=== PATIENT | male | born 1980 | race Two or more races ===

== ENCOUNTER 2024-09-29 12:39 | Inpatient (IN) | payer OTHER ==
[~2024-09-29] VITALS: Ht 177.8 cm; Wt 130.0 kg
[2024-09-29] MEDS ORDERED: MORPHINE SULFATE INJ 2 MG/ml SYRG IV PRN ×2 (13:00→16:00)
[2024-09-29] MEDS ORDERED: ACETAMINOPHEN 325 MG TAB PO PRN (13:00)
[2024-09-29] MEDS ORDERED: DOCUSATE SOD 100 MG CAP PO PRN (13:00)
[2024-09-29] MEDS ORDERED: ONDANSETRON HCL 4 MG/2 ML VIAL IV PRN (13:00)
[2024-09-29 14:01] LABS: Hematocrit 44.7 % (41.0-53.0); Hemoglobin 15.0 g/dL (13.5-17.5); Mean Corpuscular Hemoglobin 27.8 pg (28.0-32.0); Mean Corpuscular Volume 82.6 fL (80.0-100.0); Nucleated Red Blood Cells % 0.1 %
[2024-09-29 14:05] LABS: Chloride 106 mmol/L (98-107); Potassium 4.1 mmol/L (3.5-5.1); Sodium 141 mmol/L (136-145)
[2024-09-29 14:06] LABS: Anion Gap 10 (5-15); Carbon Dioxide 25 mmol/L (20-31)
[2024-09-29 14:07] LABS: Calcium 10.2 mg/dL (8.7-10.4)
[2024-09-29 14:11] LABS: BUN/Creatinine Ratio 12.2 (10.0-20.0); Blood Urea Nitrogen 15 mg/dL (9-23); Glucose 83 mg/dL (74-106); INR 1.03 (0.9-1.15); Partial Thromboplastin Time 27.5 SEC (24.5-34.5); Prothrombin Time 10.9 sec (9.3-11.8)
[2024-09-29] MEDS: SODIUM CHLORIDE 0.9% 1,000 ML IV SCH (14:31)
--- NOTE | 2024-09-29 14:50 | ED.PDOC ---
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 Patient relays that since then, he has had difficulty grasping things, so he followed up with orthopedist Dr. Sullivan. Patient states he was advised by Dr. Sullivan to be transferred to [facility] for admission so that he can undergo surgery due to having a possible bicep tendon tear. Patient denies any numbness, weakness, tingling, or further injury. Chief Complaint: Upper Extremity Time Seen by MD: 14:50 Primary Care Provider: unknown Reviewed Notes: Nurses Notes, Medications, Allergies Allergies: Coded Allergies: NO KNOWN ALLERGIES (Unverified , 09/29/24) Information Source: Patient Mode of Arrival: police Location: Left Extremity Location: Other (Bicep) Timing: Hours Prehospital treatment: None Severity: Moderate Able to Move Extremity: Yes Bear Weight: Fully Pain: Moderate Mechanism: Hyperflexion Circumstances: Sporting Onset of Symptoms: After Trauma Symptoms: Pain DVT Risk Factors: NONE Last Tetanus: Unknown Past Medical History PAST MEDICAL HISTORY: Denies Surgical History: Denies all surgeries Family History Family History: Reviewed,noncontributory to illness Social History Smoker: Non-Smoker Alcohol: Denies ETOH Use Drugs: Denies Drug Use Lives In: Home Constitutional: denies: chills, diaphoresis, fatigue, fever, malaise, sweats, weakness, others EENTM: denies: blurred vision, double vision, ear bleeding, ear discharge, ear drainage, ear pain, ear ringing, eye pain, eye redness, hearing loss, mouth pain, mouth swelling, nasal discharge, nose bleeding, nose congestion, nose pain, photophobia, tearing, throat pain, throat swelling, voice changes, others Respiratory: denies: cough, hemoptysis, orthopnea, SOB at rest, shortness of breath, SOB with excertion, stridor, wheezing, others Cardiovascular: denies: chest pain, dizzy spells, diaphoresis, Dyspnea on exertion, edema, irregular heart beat, left arm pain, lightheadedness, palpitations, PND, syncope, others Gastrointestinal: denies: abdomen distended, abdominal pain, blood streaked bowels, constipated, diarrhea, dysphagia, difficulty swallowing, hematemesis, melena, nausea, poor appetite, poor fluid intake, rectal bleeding, rectal pain, vomiting, others Genitourinary: denies: burning, dysuria, flank pain, frequency, hematuria, incontinence, penile discharge, penile sore, pain, testicle pain, testicle swelling, urgency, others Neurological: denies: dizziness, fainting, headache, left sided numbness, left sided weakness, numbness, paresthesia, pre-existing deficit, right sided numbness, right sided weakness, seizure, speech problems, tingling, tremors, weakness, others Musculoskeletal: reports: others (Left bicep pain); denies: back pain, gout, joint pain, joint swelling, muscle pain, muscle stiffness, neck pain Integumetry: denies: bruises, change in color, change in hair/nails, dryness, laceration, lesions, lumps, rash, wounds, others Allergic/Immunocompromised: denies: Difficulty Healing, Frequent Infections, Hives, Itching, others Hematologic/Lymphatic: denies: anemia, blood clots, easy bleeding, easy bruising, swollen glands, others Endocrine: denies: excessive hunger, excessive sweating, excessive thirst, excessive urination, flushing, intolerance to cold, intolerance to heat, unexplained weight gain, unexplained weight loss, others Psychiatric: denies: anxiety, bipolar disorder, depression, hopeless, panic disorder, schizophrenia, sleepless, suicidal, others All Other Systems: Reviewed and Negative Physical Exam General Appearance: No Apparent Distress, Normal HEENT: Normal ENT Inspection, Pharynx Normal, TMs Normal Neck: Full Range of Motion, Non-Tender, Normal, Normal Inspection Respiratory: Chest Non-Tender, Lungs Clear, No Accessory Muscle Use, No Respiratory Distress, Normal Breath Sounds Cardiovascular: No Edema, No JVD, No Murmur, No Gallop, Normal Peripheral Pulses, Regular Rate/Rhythm Breast Exam: Deferred Gastrointestinal: No Organomegaly, Non Tender, No Pulsatile Mass, Normal Bowel Sounds, Soft Genitalia: Deferred Pelvic: Deferred Rectal: Deferred Extremities: No calf tenderness, Normal capillary refill, Normal inspection, Normal range of motion, Non-tender, No pedal edema Musculoskeletal : Location: Left Extremity Location: Other (Bicep) Apperance: Tenderness: Moderate Neurologic: Alert, phlebotomist prn II-XII nml as Tested, No Motor Deficits, Normal Affect, Normal Mood, No Sensory Deficits Cerebellar Function: Normal Reflexes: Normal Skin: Dry, Normal Color, Warm Lymphatic: No Adenopathy Was a procedure done? Was a procedure done?: No Differential Diagnosis EXT Differential Diagnosis: Sprain, Contusion, Strain X-Ray, Labs, Meds, VS Vital Signs Date Time Temp Pulse Resp B/P (MAP) Pulse Ox O2 Delivery O2 Flow Rate FiO2 09/29/24 14:51 14 96 Room Air* 0 21 09/29/24 12:56 98.0 69 14 145/83 (103) 95 98.0 Lab Test 09/29/24 13:31 Range/Units White Blood Count 5.7 4.4-10.8 10^3/uL Red Blood Count 5.40 4.5-5.90 10^6/uL Hemoglobin 15.0 13.5-17.5 g/dL Hematocrit 44.7 41.0-53.0 % Mean Corpuscular Volume 82.6 80.0-100.0 fL Mean Corpuscular Hemoglobin 27.8 L 28.0-32.0 pg Mean Corpuscular Hemoglobin Concent 33.6 32.0-36.0 g/dL Red Cell Distribution Width 14.0 11.8-14.3 % Platelet Count 335 140-450 10^3/uL Mean Platelet Volume 8.1 6.9-10.8 fL Neutrophils (%) (Auto) 56.1 37.0-80.0 % Lymphocytes (%) (Auto) 32.5 10.0-50.0 % Monocytes (%) (Auto) 8.4 0.0-12.0 % Eosinophils (%) (Auto) 1.7 0.0-7.0 % Basophils (%) (Auto) 1.3 0.0-2.0 % Neutrophils # (Auto) 3.2 1.6-8.6 10 ^3/uL Lymphocytes # (Auto) 1.8 0.4-5.4 10 ^3/uL Monocytes # (Auto) 0.5 0-1.3 10 ^3/uL Eosinophils # (Auto) 0.1 0-0.8 10 ^3/uL Basophils # (Auto) 0.1 0-0.2 10 ^3/uL Nucleated Red Blood Cells 0.1 % Prothrombin Time 10.9 9.3-11.8 sec Prothrombin Time INR 1.03 0.9-1.15 Activated Partial Thromboplast Time 27.5 24.5-34.5 SEC Sodium Level 141 136-145 mmol/L Potassium Level 4.1 3.5-5.1 mmol/L Chloride Level 106 98-107 mmol/L Carbon Dioxide Level 25 20-31 mmol/L Anion Gap 10 5-15 Blood Urea Nitrogen 15 9-23 mg/dL Creatinine 1.23 0.700-1.30 mg/dL Glomerular Filtration Rate Calc 75 >90 mL/min BUN/Creatinine Ratio 12.2 10.0-20.0 Serum Glucose 83 74-106 mg/dL Calcium Level 10.2 8.7-10.4 mg/dL Time of 1ST Reevaluation: 15:49 Reevaluation 1ST: Unchanged Patient Education/Counseling: Diagnosis, Treatment Family Education/Counseling: No Family Present Departure 1 Departure Time of Disposition: 15:32 (Discussed the case with the Orthopedics and they requested an MRI and admission for likely surgical repair tomorrow morning) Impression: Primary Impression: Rupture of left biceps tendon Qualified Codes: S46.212A - Strain of muscle, fascia and tendon of other par ts of biceps, left arm, initial encounter Additional Impression: Left arm pain Disposition: ADMITTED INPATIENT Admit to: Med Surg Condition: Serious Critical Care Note Critical Care Time?: No Stability Stability form required: No Heart Score Heart Score: Heart Score Response (Comments) Value History N/A 0 EKG N/A 0 Age N/A 0 Risk Factors N/A 0 Troponin N/A 0 Total 0 I personally scribed for KAELYN HOWELL MD ([email or web address]) on 09/29/24 at 14:50. Electronically submitted by Zain Montague ([email or web address]). KAELYN HOWELL MD Sep 29, 2024 14:50
[2024-09-29 14:51] VITALS: RESP 14; O2SAT 96
--- NOTE | 2024-09-29 15:55 | DVHHP2 ---
History of Present Illness Reason for Visit: Rupture of left biceps tendon History of Present Illness The patient is a 43-year-old male who denies past medical history presented to [facility] with complaint of left bicep pain. 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 Patient states that since then, he has had difficulty grasping things, so he followed up with orthopedist Dr. Sullivan. Patient states he was advised by Dr. Sullivan to be transferred to [facility] for admission so that he can undergo surgery for possible bicep tendon tear. Patient was seen and evaluated in the ED, laboratory data shows WBC 5.7, platelets 335, sodium 141, potassium 4.1, BUN 15, creatinine 1.23, glucose 83, calcium 10.2, blood pressure 143/83, heart rate 69, temperature 98.0 F, O2 saturation 96% on room air. Left elbow MRI revealing full thickness rupture of the distal long head biceps tendon from insertion, with retraction of torn tendon fibers to the level of the distal myotendinous junction; focal T2 hyperintense structure along the volar aspect of the radial head, possible small fluid collection associated with the biceps tendon tear. Please see medication orders section in the computer. On my assessment, patient denied chest pain, no headache, no dizziness, no diaphoresis, no shortness of breath, no nausea, no vomiting, no fever, no chills. Patient was admitted for further evaluation and medical management. Past Medical History Denies past medical history Past Surgical History Denies all surgeries Family History Reviewed, noncontributory to the management of this case. Past Social History The patient lives at home, denies smoking, alcohol or illicit drugs abuse. Review of Systems Constitutional: No: Fever, Chills, Sweats, Weakness, Malaise, Other Eyes: No: Pain, Vision change, Conjunctivae inflammation, Eyelid inflammation, Other, Redness ENT: No: Ear pain, Ear discharge, Nose pain, Nose discharge, Nose congestion, Mouth pain, Mouth swelling, Throat pain, Throat swelling, Other Respiratory: No: Cough, Dry, Shortness of breath, SOB with excertion, Wheezing, Hemoptysis, Pleuritic Pain, Sputum, Wheezing, Other Cardiovascular: No: Chest Pain, Palpitations, Orthopnea, Paroxysmal Noc. Dyspnea, Edema, Lt Headedness, Other Gastrointestinal: No: Nausea, Vomiting, Abdominal Pain, Diarrhea, Constipation, Melena, Hematochezia, Other Genitourinary: No Dysuria, No Frequency, No Incontinence, No Hematuria, No Retention, No Other Musculoskeletal: other (Left bicep pain.); No: neck pain, shoulder pain, arm pain, back pain, hand pain, leg pain, foot pain Skin: No: Rash, Lesions, Jaundice, Bruising, Other Neurological: No: Weakness, Numbness, Incoordination, Change in speech, Confusion, Seizures, Other Allergies: Coded Allergies: NO KNOWN ALLERGIES (Unverified , 09/29/24) Medications Current Medications Medications Dose Ordered Sig/Beryl Route Start Time Stop Time Status Last Admin Dose Admin Sodium Chloride 1,000 ml @ 60 mls/hr [id number] IV 09/29/24 13:00 Acetaminophen/ Hydrocodone Bitart 1 tab Q4HP PRN PO 09/29/24 13:00 Ondansetron HCl 4 mg Q4HP PRN IV 09/29/24 13:00 Docusate Sodium 100 mg BIDPRN PRN PO 09/29/24 13:00 Acetaminophen 650 mg Q6HP PRN PO 09/29/24 13:00 Morphine Sulfate 2 mg Q4HPRN PRN IV 09/29/24 13:00 Exam Vital Signs Vital Signs Date Time Temp Pulse Resp B/P (MAP) Pulse Ox O2 Delivery O2 Flow Rate FiO2 09/29/24 14:51 14 96 Room Air* 0 21 09/29/24 12:56 98.0 69 145/83 (103) 98.0 General Appearance: Alert, Oriented X3, Cooperative, No acute distress HEENT: PERRLA, EOMI, Mucous membr. moist/pink Respiratory: Clear to auscultation, Normal air movement Cardiovascular: Regular rate, Normal S1, Normal S2, No murmurs Abdominal: Normal bowel sounds, Soft, No tenderness, No hepatospenomegaly, No masses Extremities: No clubbing, No cyanosis, No edema, Normal pulses, Other (Left upper extremity tenderness/pain) Skin: No rashes, No breakdown, No significant lesion Neuro: Normal gait, Normal speech, Normal tone, Sensation intact, Cranial nerves 3-12 NL, Reflexes 2+, Other (Left upper extremity limited range of m otion) Psych/Mental Status: Mental status NL, Mood NL Labs/Xrays Labs Test 09/29/24 13:31 Range/Units White Blood Count 5.7 4.4-10.8 10^3/uL Red Blood Count 5.40 4.5-5.90 10^6/uL Hemoglobin 15.0 13.5-17.5 g/dL Hematocrit 44.7 41.0-53.0 % Mean Corpuscular Volume 82.6 80.0-100.0 fL Mean Corpuscular Hemoglobin 27.8 L 28.0-32.0 pg Mean Corpuscular Hemoglobin Concent 33.6 32.0-36.0 g/dL Red Cell Distribution Width 14.0 11.8-14.3 % Platelet Count 335 140-450 10^3/uL Mean Platelet Volume 8.1 6.9-10.8 fL Neutrophils (%) (Auto) 56.1 37.0-80.0 % Lymphocytes (%) (Auto) 32.5 10.0-50.0 % Monocytes (%) (Auto) 8.4 0.0-12.0 % Eosinophils (%) (Auto) 1.7 0.0-7.0 % Basophils (%) (Auto) 1.3 0.0-2.0 % Neutrophils # (Auto) 3.2 1.6-8.6 10 ^3/uL Lymphocytes # (Auto) 1.8 0.4-5.4 10 ^3/uL Monocytes # (Auto) 0.5 0-1.3 10 ^3/uL Eosinophils # (Auto) 0.1 0-0.8 10 ^3/uL Basophils # (Auto) 0.1 0-0.2 10 ^3/uL Nucleated Red Blood Cells 0.1 % Prothrombin Time 10.9 9.3-11.8 sec Prothrombin Time INR 1.03 0.9-1.15 Activated Partial Thromboplast Time 27.5 24.5-34.5 SEC Sodium Level 141 136-145 mmol/L Potassium Level 4.1 3.5-5.1 mmol/L Chloride Level 106 98-107 mmol/L Carbon Dioxide Level 25 20-31 mmol/L Anion Gap 10 5-15 Blood Urea Nitrogen 15 9-23 mg/dL Creatinine 1.23 0.700-1.30 mg/dL Glomerular Filtration Rate Calc 75 >90 mL/min BUN/Creatinine Ratio 12.2 10.0-20.0 Serum Glucose 83 74-106 mg/dL Calcium Level 10.2 8.7-10.4 mg/dL PATIENT: PATRICK MARTINEZACCT: [id number] UNIT: [id number] : 1980 LOC: ER ROOM / BED: / AGE / SEX: 43 / M ADM STATUS: REG ER SERVICE 1241 ORDERING PHYSICIAN: KAELYN HOWELL MD PROCEDURE(s): LELMR - MRI L ELBOW WO CONTRAST REASON: rule out distal bicep tear ORDER NUMBER(s): [id number], ACCESSION NUMBER(s): [id number] CLINICAL INFORMATION: Rule out distal biceps tendon tear. COMPARISON: None TECHNIQUE: Multisequence multiplanar MRI images of the Magnetic Resonance Magnetic Resonance elbow were obtained without contrast. FINDINGS: BONES/JOINT: No acute fracture or focal marrow contusion. No significant arthropathy. No significant joint effusion. T2 hyperintense structure along the volar aspect of the radial head, in close proximity to the radiocapitellar joint, measuring up to 0.8 cm in greatest dimension, possible small fluid collection or ganglion cyst. TENDONS: Common extensor tendon origin is intact and otherwise unremarkable. Origin of the common flexor tendon is intact and otherwise unremarkable. There is full-thickness rupture of the long head biceps tendon from its insertion at the radial tuberosity with retraction of torn tendon fibers up to 9.6 cm to the level of the distal myotendinous junction. There is edema moderate fluid cou rsing along the location of the biceps tendon rupture from the myotendinous junction to the radial tuberosity. The distal brachialis tendon and distal triceps tendon are intact and otherwise unremarkable. LIGAMENTS: Ulnar collateral ligament is intact. Radial collateral ligament, lateral ulnar collateral ligament, and annular ligament are intact. CUBITAL TUNNEL: Unremarkable. Normal signal intensity and caliber of the ulnar nerve within the cubital tunnel. MUSCLES: Prominent intramuscular edema fluid of the distal biceps myotendinous junction due to the biceps tendon rupture. OTHER: Prominent subcutaneous edema along the volar and medial/ulnar aspects of the elbow from the biceps tendon rupture. IMPRESSION: 1. Full-thickness rupture of the distal long head biceps tendon from its insertion, with retraction of torn tendon fibers to the level of the distal myotendinous junction as detailed above. 2. Focal T2 hyperintense structure along the volar aspect of the radial head, possible small fluid collection associated with thebiceps tendon tear, although ganglion cyst could also have a similar appearance in the appropriate clinical setting, given the proximity to the radiocapitellar joint. 3. Additional findings as detailed above. SEPSIS Sepsis Screen Date sepsis recognized/suspect: Sep 29, 2024 Time Sepsis recognized/suspect: 1244 Recent Procedure: No On Antibiotic Therapy: No Respiratory Rate >20: No Heart Rate >90: No Temp<36 C (96.8 F) or >38.3 C: No SBP <90 or MAP <65 mmHG: No New Acute Mental Status Change: No Is the patient on CPAP, BIPAP,: No Physician Orders Mri L Elbow Wo Contrast (09/29/24 12:41) Allergies (09/29/24 12:50) Code Status (09/29/24 12:50) Sodium Chloride 0.9% (09/29/24 13:00) Oxygen Per Hour (09/29/24 12:50) Hydrocodone-Acet 5/325mg Tab ([place] 5/32 (09/29/24 13:00) Ondansetron Hcl (Zofran) (09/29/24 13:00) Docusate Sodium Capsule (Colace Capsule) (09/29/24 13:00) Complete Blood Count (09/30/24 04:00) Comprehensive Metabolic Panel (09/30/24 04:00) Npo (Nothing By Mouth) Diet (09/29/24 Lunch) Condition: Serious (09/29/24 12:50) Acetaminophen Tablet (Tylenol Tablet) (09/29/24 13:00) Bedrest With Bathroom Privileg (09/29/24 12:50) Morphine Sulfate Injection (09/29/24 13:00) Sequential Compression Device (09/29/24 ) * Orthopedic Consult (09/29/24 13:02) Vital Signs Date Time Temp Pulse Resp B/P (MAP) Pulse Ox O2 Delivery O2 Flow Rate FiO2 09/29/24 14:51 14 96 Room Air* 0 21 09/29/24 12:56 98.0 69 14 145/83 (103) 95 98.0 Laboratory Tests Test 09/29/24 13:31 White Blood Count 5.7 10^3/uL (4.4-10.8) Assessment/Plan Assessment/Plan Rupture of left biceps tendon Left arm pain Strain of muscle, fascia and tendon of other parts of biceps, left arm, initial encounter Plan 1. Admit to med surge unit 2. Breathing treatment 3. Pain control management 4. Management of fluids and electrolytes 5. Consultation for orthopedic surgeon 6. Diagnostic tests left elbow MRI 7. DVT prophylaxis on SCDs 8. Repeat labs CBC, CMP in a.m. 9. Continue with current medical management 10. Treatment plan discussed with patient and RN. Patient verbalized u nderstanding. Plan discussed with: Patient, Other (RN) My Orders Orders - ATILIO LUIS DNP Procedure Category Date Status Time Allergies TRISTEN 09/29/24 In Process 12:50 Code Status CODE 09/29/24 Transmitted 12:50 Sodium Chloride 0.9% PHA 09/29/24 In Process 13:00 Oxygen Per Hour RT 09/29/24 Transmitted 12:50 Hydrocodone-Acet PHA 09/29/24 In Process 5/325mg Tab ([place] 13:00 Ondansetron Hcl PHA 09/29/24 In Process (Zofran) 13:00 Docusate Sodium PHA 09/29/24 In Process Capsule (Colace 13:00 Complete Blood Count LAB 09/30/24 Verified 04:00 Comprehensive LAB 09/30/24 Verified Metabolic Panel 04:00 Npo (Nothing By DIET 09/29/24 Transmitted Mouth) Diet Lunch Condition: Serious TRISTEN 09/29/24 In Process 12:50 Acetaminophen Tablet PHA 09/29/24 In Process (Tylenol Tablet) 13:00 Bedrest With Bathroom TRISTEN 09/29/24 In Process Privileg 12:50 Morphine Sulfate PHA 09/29/24 In Process Injection 13:00 Sequential TRISTEN 09/29/24 In Process Compression Device * Orthopedic Consult CONS 09/29/24 Transmitted 13:02 Problem List: (1) Rupture of left biceps tendon (2) Left arm pain (3) Strain of muscle, fascia and tendon of other parts of biceps, left arm, initial encounter Date of Service: Sep 29, 2024 Billing Provider: ATILIO LUIS DNP Common Visit Codes: [id number] INP/OBS CARE (HIGH) ATILIO LUIS DNP Sep 29, 2024 15:55
[2024-09-29] MEDS ORDERED: NITROGLYCERIN 0.4 MG SL TAB SL PRN (16:00)
--- NOTE | 2024-09-29 16:05 | DVH ---
CLINICAL INFORMATION: Rule out distal biceps tendon tear. COMPARISON: None TECHNIQUE: Multisequence multiplanar MRI images of the Magnetic Resonance Magnetic Resonance elbow we re obtained without contrast. FINDINGS: BONES/JOINT: No acute fracture or focal marrow contusion. No significant arthropathy. No significant joint effusion. T2 hyperintense structure along the volar aspect of the radial head, in close proximi ty to the radiocapitellar joint, measuring up to 0.8 cm in greatest dimension, possible small fluid c ollection or ganglion cyst. TENDONS: Common extensor tendon origin is intact and otherwise unremarkable. Origin of the common fle xor tendon is intact and otherwise unremarkable. There is full-thickness rupture of the long head bic eps tendon from its insertion at the radial tuberosity with retraction of torn tendon fibers up to 9. 6 cm to the level of the distal myotendinous junction. There is edema moderate fluid coursing along t he location of the biceps tendon rupture from the myotendinous junction to the radial tuberosity. The distal brachialis tendon and distal triceps tendon are intact and otherwise unremarkable. LIGAMENTS: Ulnar collateral ligament is intact. Radial collateral ligament, lateral ulnar collateral ligament, and annular ligament are intact. CUBITAL TUNNEL: Unremarkable. Normal signal intensity and caliber of the ulnar nerve within the cubit al tunnel. MUSCLES: Prominent intramuscular edema fluid of the distal biceps myotendinous junction due to the bi ceps tendon rupture. OTHER: Prominent subcutaneous edema along the volar and medial/ulnar aspects of the elbow from the bi ceps tendon rupture. IMPRESSION: 1. Full-thickness rupture of the distal long head biceps tendon from its insertion, with retraction o f torn tendon fibers to the level of the distal myotendinous junction as detailed above. 2. Focal T2 hyperintense structure along the volar aspect of the radial head, possible small fluid co llection associated with thebiceps tendon tear, although ganglion cyst could also have a similar appe arance in the appropriate clinical setting, given the proximity to the radiocapitellar joint. 3. Additional findings as detailed above.
[2024-09-29 17:00] VITALS: BP 120/73; PULSE 68; RESP 20; TEMP 97.6; O2SAT 95
[2024-09-29] MEDS ORDERED: GABA-1250 PO (18:23)
[2024-09-29] MEDS ORDERED: IBUP1TAB5 PO (18:25)
[2024-09-29 20:00] VITALS: RESP 18
--- NOTE | 2024-09-29 20:21 | DVHINCON2 ---
Consult Note Consult Consult Note Chief Complaint: Left arm pain and weakness after a "pop" sensation at the distal biceps region x 2.5 weeks --- History of Present Illness: Pranay Sauer is a 43-year-old inmate who presents to the orthopedic clinic for evaluation of right wrist pain. During todays visit, the patient also reported a separate concern regarding his left arm. Approximately two and a half weeks ago, while lifting an object, he felt a sudden "pop" in his left elbow region followed by acute pain in the antecubital fossa and the development of ecchymosis. He reports weakness in supination and pain with elbow flexion. The symptoms have persisted since the injury without significant improvement. The patient denies any significant past medical history. He reports no cardiac or pulmonary issues, is a non-smoker, and is not taking any blood thinners. No other medical concerns were noted. These left arm symptoms were not the primary reason for todays visit but were elicited during the clinical exam, which raised concern for a left distal biceps tendon rupture. The patient is currently an inpatient but is expected to be discharged in the morning. Arrangements for surgical care will be made for next week. MRI completed today --- Physical Examination: Left Elbow/Distal Biceps: Ecchymosis present over antecubital fossa Palpable gap over the distal biceps tendon region Weakness with resisted supination and elbow flexion Positive hook test (unable to hook tendon) Tenderness localized over distal biceps insertion No erythema or warmth Neurovascularly intact distally --- Assessment: 1. Suspected Left Distal Biceps Tendon Rupture (S46.192A) acute, traumatic suspected rupture given history of acute "pop," ecchymosis, pain, and weakness on supination. --- Plan: Ordered MRI of the left elbow while patient was inpatient today, confirmed diagnosis and assess extent of tendon rupture. Patient educated regarding suspected diagnosis and potential need for surgical intervention if rupture confirmed. Patient is currently inpatient and will be discharged in the morning. Case was discussed with Dr. Sullivan and Dr. Painting. Dr. Painting will be performing the surgery next week. Our Medical staff at [facility] will contact the long term medical staff this week to coordinate care and ensure appropriate arrangements for surgical scheduling and transport for next week. Advised to avoid heavy lifting or activities that exacerbate pain in the interim.Sling use(Inpatient nurse to place patient in sling , can get from Ortho department if not available on floor) All questions were answered for the patient, who verbalized understanding and agreement with the plan. Plan discussed with: Patient, Other (bedside nurse) Visit Coding Surgery Date of Service if different f: Sep 29, 2024 Billing Provider: SUSAN DE LOS SANTOS Surgery Visit Codes: 19709 - INP CONSULT <55 MIN SUSAN DE LOS SANTOS Sep 29, 2024 20:21
[2024-09-29 21:00] VITALS: BP 131/74; PULSE 75; RESP 17; TEMP 97.7; O2SAT 94
[2024-09-29] MEDS: HYDROcodone-ACET 5/325MG TAB PO PRN (21:30)
[2024-09-30 01:14] VITALS: BP 125/82; PULSE 55; RESP 16; TEMP 98; O2SAT 100
[2024-09-30 05:19] VITALS: BP 99/53; PULSE 51; RESP 20; TEMP 97.4; O2SAT 94
[2024-09-30 07:27] LABS: Hematocrit 40.7 % (41.0-53.0); Hemoglobin 13.7 g/dL (13.5-17.5); Mean Corpuscular Hemoglobin 27.9 pg (28.0-32.0); Mean Corpuscular Volume 83.0 fL (80.0-100.0); Nucleated Red Blood Cells % 0.2 %
[2024-09-30 07:33] LABS: Alanine Aminotransferase 32 U/L (7-40); Alkaline Phosphatase 62 U/L (46-116); Anion Gap 8 (5-15); BUN/Creatinine Ratio 13.7 (10.0-20.0); Bilirubin, Total 0.7 mg/dL (0.2-1.0); Blood Urea Nitrogen 17 mg/dL (9-23); Calcium 9.6 mg/dL (8.7-10.4); Carbon Dioxide 26 mmol/L (20-31); Chloride 105 mmol/L (98-107); Glucose 84 mg/dL (74-106); Potassium 4.1 mmol/L (3.5-5.1); Sodium 139 mmol/L (136-145); Total Protein 6.4 g/dL (5.7-8.2)
[2024-09-30 07:36] LABS: Albumin 4.1 g/dL (3.2-4.8)
[2024-09-30 09:00] VITALS: BP 126/82; PULSE 64; RESP 18; TEMP 97.8; O2SAT 95
--- NOTE | 2024-09-30 11:58 | DVHDS ---
DATE OF DISCHARGE: 09/30/2024 CHIEF COMPLAINT ON ADMISSION: Left arm pain. HISTORY OF PRESENT ILLNESS: This is a 43-year-old male [facility] inmate who states that he was doing pull-ups when he heard a snap in his left distal forearm with sudden severe pain. He was brought to medical and from there, he was referred to the emergency room. MRI performed and revealed a biceps tendon tear. He was admitted for further management. ADMITTING DIAGNOSES: * Left arm pain. * Left biceps tendon tear. HOSPITAL COURSE: The patient is admitted to Med/Surg in stable condition. Started on a regular diet. He was given analgesics and Ortho consult with Dr. Sullivan and Dr. Painting were obtained and it was their recommendation, the patient undergo surgical repair next week. At this time, the patient is to be discharged and arrangements will be made for outpatient care. [facility]. DISCHARGE DIAGNOSES: Left arm pain and biceps tendon tear. DISCHARGE MEDICATIONS: The patient is instructed to resume pre-hospitalization medications and follow up with Health Services Unit regarding scheduling of the surgery. MD JA Diggs/ELOISE TID: [id number] RECEIPT: [id number]
[2024-09-30 13:00] VITALS: BP 117/73; PULSE 51; RESP 18; TEMP 97.9; O2SAT 95
[2024-10-01 10:16] LABS: Hepatitis B Surface Antigen Negative (Negative)
[2024-10-01 10:48] LABS: Hepatitis C Antibody Negative (Negative)
== END 2024-09-30 13:32 | DRG 563 ==
LOC: EEVIPCON 12:39 → ER 12:39 → OVERFLOW 15:54 → CENTRAL 16:54
PROVIDERS: ADMIT Internal Medicine; ATTEND Internal Medicine
DX: S46.212A Strain of muscle, fascia and tendon of other parts of biceps, left arm, initial encounter (principal); X50.9XXA Other and unspecified overexertion or strenuous movements or postures, initial encounter; Y93.89 Activity, other specified; Y92.89 Other specified places as the place of occurrence of the external cause; Y99.8 Other external cause status
CPT/HCPCS: 36415; 73221; 80048; 80053; 85025; 85610; 85730; 86803; 87081; 87340; 96360; G0378

== ENCOUNTER 2024-10-07 09:26 | Inpatient (IN) | payer MEDICAID, OTHER ==
[~2024-10-07] VITALS: Ht 177.8 cm; Wt 134.0 kg
[~2024-10-07 09:26] MED LIST: GABA-1250 PO; IBUP1TAB5 PO
[2024-10-07] MEDS ORDERED: KETOROLAC TROMETH 30 MG/ML 1ML VIAL ONE (12:08)
[2024-10-07] MEDS ORDERED: ONDANSETRON HCL 4 MG/2 ML VIAL ONE ×2 (12:08→13:33)
[2024-10-07] MEDS ORDERED: LIDOCAINE 2% (LOCAL ANESTH.) PF 5ml SDV ONE (12:08)
[2024-10-07] MEDS ORDERED: PROPOFOL 10 MG/ML 20 ML IV ONE ×2 (12:09→13:02)
[2024-10-07] MEDS ORDERED: GLYCOPYRROLATE 0.2 MG/ML 1ML VIAL ONE (12:09)
[2024-10-07] MEDS ORDERED: HYDROmorphone HCL 2 MG/ML VL/or syr ONE (13:01)
[2024-10-07] MEDS ORDERED: fentaNYL CITRATE 100 MCG/2 ML VL ONE (13:01)
[2024-10-07] MEDS: BUPIVACAINE 0.5% MPF INJ 30ML SDV IJ ONE (14:45)
[2024-10-07 15:09] VITALS: O2SAT 97
[2024-10-07] MEDS ORDERED: MORPHINE SULFATE INJ 2 MG/ml SYRG IV PRN (15:30)
[2024-10-07] MEDS ORDERED: ACETAMINOPHEN IV 1000 MG/100ML (10MG/ML) IV PRN (15:30)
[2024-10-07] MEDS ORDERED: NITROGLYCERIN 0.4 MG SL TAB SL PRN (15:30)
[2024-10-07] MEDS ORDERED: MEPERIDINE HCL (25 MG/ML) 1ML VIAL IV PRN (15:30)
[2024-10-07] MEDS ORDERED: hydrALAZINE HCL 20 MG/ML VL IV PRN (15:30)
[2024-10-07] MEDS ORDERED: ONDANSETRON HCL 4 MG/2 ML VIAL IV ONE (15:30)
[2024-10-07] MEDS: METOCLOPRAMIDE HCL 5MG/ml INJ 2ml VIAL IV ONE (15:34)
[2024-10-07] MEDS: HYDROmorphone HCL 2 MG/ML VL/or syr IV PRN ×2 (15:35→20:54)
--- NOTE | 2024-10-07 16:41 | DVHOP2 ---
Operative Report - 2 Report Details Date: 10/07/24 Preop Diagnosis: Left distal biceps tear, four weeks out Postop Diagnosis: Left distal biceps tear, four weeks out Surgeon: Rick Painting MD Anesthesiologist: Dr Mccrary Anesthesia: General Implant: Arthrex biceps kit with button Consent: The patient was informed of the risks and benefits of the procedure. These include but are not limited to complications of anesthesia, postoperative infection, incomplete relief of symptoms, recurrence of symptoms, damage to blood vessels, nerves and tendons, deep venous thrombosis, pulmonary embolism and possible need for repeat surgery in the future. Complications: None Estimated Blood Loss: Less than 10 mL Indications for Surgery: The patient is a 43-year-old male present inmate who presented to the emergency room with a history of elbow injury. Clinical and radiological evaluation demonstrated complete distal biceps tear with 9 cm of retraction. Nonoperative and operative management options were discussed. Pros and cons were discussed. Benefits, risks and treatment alternatives of the surgery including posterior interosseous nerve palsy was discussed Name of Procedure Performed Left distal biceps primary repair using button Procedure Details Procedure Details: Positioning: Supine with the arm prepped and draped in the usual sterile fashion. Incision: A 3-cm longitudinal incision was made just distal to the elbow flexion crease, slightly medial to the bicipital tendon. Exploration and Debridement: The lateral antebrachial cutaneous nerve was identified and retracted to protect it. The distal biceps had retracted proximally around 10 cm. An attempt was made to find the tendon through the forearm incision. However at to make another small incision over the arm to retrieve it as it was not possible. The retracted distal biceps tendon was identified and mobilized. The tendon was debrided to ensure healthy tissue for repair. Tendon Preparation: The distal biceps tendon was whipstitched with FiberLoop suture, creating limbs for passage through the Arthrex button. This was size 7 mm Bone Tunnel Creation: The proximal radius was now exposed. Brachioradialis was retracted laterally. Army-Gas retractors were used. Care was taken to keep the arm in supination always. No Modesta retractors were used. No excessive traction was used. C-arm images were obtained to confirm the trajectory of the pin and also the plane of dissection. A unicortical tunnel was drilled in the radial tuberosity using a cannulated drill and guide pin. Bone debris was cleaned up using irrigation and suction. Tendon Fixation: The FiberLoop suture limbs were passed through the Arthrex button. The button was then passed through the unicortical tunnel, and the suture limbs were tensioned to seat the button against the radius. Fluoroscopy was used to confirm proper button deployment. The arm had to be flexed around 90 for the reduction. A fingernail was used to pass the suture twice around the distal biceps tendon and a knot was tied for secure fixation. The fixation was stable and did not loose tension. Closure: The wound was copiously irrigated. The subcutaneous tissue was closed with interrupted sutures, and the skin was closed with a running subcuticular suture. A sterile dressing was applied. Postoperative Care: The patient was placed in a splint at 90 with instructions to strictly stay in the splint for around four weeks. Follow-up appointment was scheduled for wound check and suture removal. Comments: The reduction of the tendon into the tunnel was challenging due to the elbow being at 90 degrees. Despite this, the tendon was successfully secured using the Arthrex button fixation. Condition Good Disposition Still a Patient RICK PAINTING MD Oct 07, 2024 16:41
[2024-10-07] MEDS ORDERED: BISACODYL 5 MG EC TAB PO PRN (17:15)
[2024-10-07] MEDS ORDERED: ONDANSETRON HCL 4 MG/2 ML VIAL IV PRN (17:15)
[2024-10-07] MEDS ORDERED: ACETAMINOPHEN 325 MG TAB PO PRN (17:15)
--- NOTE | 2024-10-07 17:29 | DVH ---
EXAM: XY L ELBOW 2 VIEW XRAY, XY C ARM FLUOROSCOPY UP TO 60MIN HISTORY: BICEP REPAIR TECHNIQUE: Intraoperative radiographs of the left elbow were obtained. FLUOROSCOPY TIME: 10.5 seconds FLUOROSCOPY IMAGES: 4 TOTAL DOSE: 0.45 mGy COMPARISON: None FINDINGS/IMPRESSION: Refer to intraoperative report for further evaluation.
[2024-10-07] MEDS: ACETAMINOPHEN IV 100 ML IV ONE (18:05)
[2024-10-07] MEDS: LACTATED RINGER'S 1,000 ML IV SCH (18:05)
[2024-10-07] MEDS: METOCLOPRAMIDE HCL 5MG/ml INJ 2ml VIAL ONE (18:05)
[2024-10-07] MEDS: ceFAZolin 2 GM/D5W50ml 50 ML IV ONE (18:05)
[2024-10-07] MEDS: HYDROmorphone HCL 2 MG/ML VL/or syr ONE (18:05)
[2024-10-07 18:14] VITALS: BP 123/90; PULSE 68; RESP 16; TEMP 97.5; O2SAT 98
[2024-10-07 18:20] VITALS: PULSE 68; RESP 20; O2SAT 98
[2024-10-07] MEDS ORDERED: METF-370 PO (18:50)
[2024-10-07] MEDS: ceFAZolin 1GM/50ML 50 ML IV SCH (19:03)
[2024-10-07 20:00] VITALS: PULSE 80; RESP 18; O2SAT 98
[2024-10-07] MEDS: DOCUSATE SOD 100 MG CAP PO SCH (20:40)
[2024-10-07] MEDS: ENOXAPARIN SOD 30 MG/0.3 ML SYRINGE SC SCH (20:41)
[2024-10-07 20:46] VITALS: BP 142/73; PULSE 77; RESP 18; TEMP 98; O2SAT 96
[2024-10-07] MEDS: HYDROcodone-ACET 5/325MG TAB PO PRN (22:12)
[2024-10-08 01:00] VITALS: BP 137/73; PULSE 64; RESP 17; TEMP 97.8; O2SAT 98
[2024-10-08 05:00] VITALS: BP 140/76; PULSE 71; RESP 18; TEMP 98.1; O2SAT 97
--- NOTE | 2024-10-08 07:34 | DVHPN2 ---
Progress Note - Dictate Date Seen: Oct 08, 2024 Medical Necessity Reason Pt with a Central, PICC or Fol: No Subjective PATIENT WAS LYING COMFORTABLY IN BED DURING MY EVALUATION REPORTS SOME POSTOPERATIVE ELBOW PAIN THAT IS BEING WELL MANAGED WITH THE HELP OF PAIN MEDICATION. PATIENT NOTES THAT HE ALREADY FEELS TIGHTNESS AND STIFFNESS TO HIS ELBOW AND ADVISED HIM TO AVOID EXTENDING THE ELBOW PAST 90 AND TO REMAIN IN HIS POSTERIOR LONG ARM SPLINT. PATIENT IS OTHERWISE FEELING WELL BUT DOES NOTE THAT HE HAS BEEN HAVING DIFFICULTY URINATING AND NOTES THAT HE USUALLY TAKES FLOMAX BUT HAS NOT HAD ANY YET. PATIENT IS OTHERWISE FEELING WELL DENYING ANY OTHER COMPLAINTS OR CONCERNS DURING MY EVALUATION. vital signs Vital Sign Date Time Temp Pulse Resp B/P (MAP) Pulse Ox O2 Delivery O2 Flow Rate FiO2 10/08/24 05:11 85 18 124/82 10/08/24 05:00 98.1 97 98.1 10/07/24 20:00 Nasal Cannula* 2 28 Total Intake and Output 10/07/24 10/07/24 10/08/24 15:00 23:00 07:00 Intake Total 100 ml 280 ml 800 ml Balance 100 ml 280 ml 800 ml medications Current Medications Medications Dose Ordered Sig/Beryl Route Start Time Stop Time Status Last Admin Dose Admin Nitroglycerin 0.4 mg Q5MINP PRN SL 10/07/24 15:30 Morphine Sulfate 2 mg Q30M PRN IV 10/07/24 15:30 Lactated Ringer's 1,000 ml @ 100 mls/hr Q10H IV 10/07/24 17:15 10/08/24 03:15 100 MLS/HR Acetaminophen 650 mg Q6HP PRN PO 10/07/24 17:15 Acetaminophen/ Hydrocodone Bitart 1 tab Q4HP PRN PO 10/07/24 17:15 10/07/24 22:12 1 TAB Hydromorphone HCl 1 mg Q2HP PRN IV 10/07/24 17:15 10/08/24 04:41 1 MG Ondansetron HCl 4 mg Q6HP PRN IV 10/07/24 17:15 Docusate Sodium 100 mg Q12HR PO 10/07/24 22:00 10/07/24 20:40 100 MG Bisacodyl 5 mg Q12HP PRN PO 10/07/24 17:15 Enoxaparin Sodium 30 mg Q12HR SC 10/07/24 22:00 10/07/24 20:41 30 MG Acetaminophen/ Hydrocodone Bitart 1 tab Q4HP PRN PO 10/07/24 17:15 objective A&O x4 in no acute distress Elbow range of motion grossly limited with pain on movement Dressing clean, dry, and intact Posterior long-arm splint intact No distal edema or calf tenderness to palpation Neurovascularly intact with cap refill less than 2 seconds Assessment/Plan Continue current management as well as pain control and advised patient to remain in his posterior long-arm splint and avoid extending his arm past 90. I advised the patient to avoid any extraneous activity for the the next six weeks from the date of surgery. I instructed the patient to follow up with our office in 10-14 days for his 1st postoperative evaluation. We will be providing an order for Flomax given the patient's urinary retention. Plan discussed with: Patient DAMION VANCE Oct 08, 2024 07:34
[2024-10-08 07:37] VITALS: PULSE 72; RESP 16; O2SAT 98
[2024-10-08 07:58] LABS: Hematocrit 42.2 % (41.0-53.0); Hemoglobin 14.1 g/dL (13.5-17.5); Mean Corpuscular Hemoglobin 28.3 pg (28.0-32.0); Mean Corpuscular Volume 84.9 fL (80.0-100.0); Nucleated Red Blood Cells % 0.1 %
[2024-10-08 08:04] LABS: Anion Gap 10 (5-15); Carbon Dioxide 28 mmol/L (20-31); Chloride 99 mmol/L (98-107); Potassium 4.4 mmol/L (3.5-5.1); Sodium 137 mmol/L (136-145)
[2024-10-08 08:06] LABS: Calcium 9.6 mg/dL (8.7-10.4)
[2024-10-08 08:10] LABS: BUN/Creatinine Ratio 9.2 (10.0-20.0); Blood Urea Nitrogen 16 mg/dL (9-23)
[2024-10-08 08:11] LABS: Glucose 256 mg/dL (74-106)
[2024-10-08 09:00] VITALS: BP 136/86; PULSE 72; RESP 16; TEMP 97.6; O2SAT 98
[2024-10-08] MEDS: HYDROcodone-ACET 10/325MG TAB PO PRN (09:22)
--- NOTE | 2024-10-08 10:54 | DVHDS2 ---
Discharge Summary Date of Admission Oct 07, 2024 at 15:26 Date of Discharge: Oct 08, 2024 Labs/Diagnostic Data: Laboratory Results Test 10/08/24 06:36 White Blood Count 10.5 10^3/uL (4.4-10.8) Red Blood Count 4.97 10^6/uL (4.5-5.90) Hemoglobin 14.1 g/dL (13.5-17.5) Hematocrit 42.2 % (41.0-53.0) Mean Corpuscular Volume 84.9 fL (80.0-100.0) Mean Corpuscular Hemoglobin 28.3 pg (28.0-32.0) Mean Corpuscular Hemoglobin Concent 33.4 g/dL (32.0-36.0) Red Cell Distribution Width 14.1 % (11.8-14.3) Platelet Count 311 10^3/uL (140-450) Mean Platelet Volume 8.5 fL (6.9-10.8) Neutrophils (%) (Auto) 82.8 % (37.0-80.0) Lymphocytes (%) (Auto) 9.9 % (10.0-50.0) Monocytes (%) (Auto) 6.7 % (0.0-12.0) Eosinophils (%) (Auto) 0.0 % (0.0-7.0) Basophils (%) (Auto) 0.6 % (0.0-2.0) Neutrophils # (Auto) 8.7 10 ^3/uL (1.6-8.6) Lymphocytes # (Auto) 1.0 10 ^3/uL (0.4-5.4) Monocytes # (Auto) 0.7 10 ^3/uL (0-1.3) Eosinophils # (Auto) 0 10 ^3/uL (0-0.8) Basophils # (Auto) 0.1 10 ^3/uL (0-0.2) Nucleated Red Blood Cells 0.1 % Sodium Level 137 mmol/L (136-145) Potassium Level 4.4 mmol/L (3.5-5.1) Chloride Level 99 mmol/L (98-107) Carbon Dioxide Level 28 mmol/L (20-31) Anion Gap 10 (5-15) Blood Urea Nitrogen 16 mg/dL (9-23) Creatinine 1.74 mg/dL (0.700-1.30) Glomerular Filtration Rate Calc 49 mL/min (>90) BUN/Creatinine Ratio 9.2 (10.0-20.0) Serum Glucose 256 mg/dL (74-106) Calcium Level 9.6 mg/dL (8.7-10.4) Other Laboratory Tests 10/08/24 06:36 Brief Hx & Hospital Course: Patient was brought to the hospital due to a left distal biceps tear and occurred after working out while in [facility]. He underwent a left open distal biceps tendon repair, he tolerated the procedure well without complications and was kept overnight for postoperative observation. He has remained medically stable without any overnight events but does note that he has been having some urinary retention this morning and was in the process of getting a straight catheter placed when he voided and reports that he has been feeling significantly better. Given the patient has remained medically stable we can have the patient be discharged and advised the patient to remain strictly in his posterior long-arm splint and to avoid lifting anything heavier than 5 pounds for the next 4 weeks. We will have the patient follow-up with our office in 10 to 14 days for his first postoperative evaluation. Condition at Discharge: Good Final Diagnosis/Problems List Left distal biceps tear, four weeks out Discharge Disposition: Home Discharge Instruct/Medications Diet: Regular Activity: See Comment Activity comment: Patient to remain in posterior long arm splint for 4 weeks from the day of surgery. Avoid lifting anything heavier than a cellphone for the next 4 weeks. Follow Up/Referral: Patient to follow up with our office in 10-14 days Scheduled Gabapentin (Gabapentin), 300 MG PO BID, (Reported) Ibuprofen Micronized (Ibuprofen), 600 MG PO BID, (Reported) Metformin Hydrochloride (Metformin Hcl), 1 TAB PO BID, (Reported) Discharge Statement: "Patient was advised to return to the ER or call 911 if any headaches, dizziness, shortness of breath, chest pain, abdominal pain, bleeding, fevers, or worsening of medical condition. Patient was counseled about treatment plan, medications, possible side effects, patientverbalized understanding. All questions were answered to the best of my ability. This discharge took greater then 30 minutes in planning, reviewing documentation, counseling the patient, and discussing with other team members." ASSESSMENT ASSESSMENT Assessment Left distal biceps tear, four weeks out DAMION VANCE Oct 08, 2024 10:54
[2024-10-08] MEDS: TAMSULOSIN HYDROCHLORIDE 0.4 MG CAP PO SCH (11:07)
[2024-10-08 13:00] VITALS: BP 117/71; PULSE 79; RESP 18; TEMP 98.6; O2SAT 96
[2024-10-08 14:07] VITALS: TEMP 37
== END 2024-10-08 16:36 | DRG 502 ==
LOC: SUR 09:26 → EEVIPCON 15:26 → OVERFLOW 15:26 → CENTRAL 18:07
PROVIDERS: ADMIT Internal Medicine; ATTEND Orthopaedic Surgery Sports Medicine
PROC: 0LBM0ZZ Excision of Left Upper Leg Tendon, Open Approach (ICD-10-PCS; principal; 2024-10-07 13:18)
DX: S46.212A Strain of muscle, fascia and tendon of other parts of biceps, left arm, initial encounter (principal); X58.XXXA Exposure to other specified factors, initial encounter; Y93.89 Activity, other specified; Y92.89 Other specified places as the place of occurrence of the external cause; Y99.8 Other external cause status
CPT/HCPCS: 36415; 73070; 76000; 80048; 85025; G0378; J0131; J1100; J1885; J2003; J2405; J2704; J3490

== ENCOUNTER 2025-02-15 09:09 | Outpatient (CLI) | payer OTHER ==
[~2025-02-15 09:09] MED LIST changes: +METF-370 PO
--- NOTE | 2025-02-15 12:12 | DVH ---
CLINICAL INDICATION: SUSPECTED HARDWARE LOOSENING TECHNIQUE: Noncontrast CT of the right wrist was performed. Sagittal and coronal reformatted images are provided. COMPARISON: XY R WRIST 3+ VIEW XRAY on DOS: 09/29/24 CT Dose: CTDI volume is 13.85 mGy. Dose-length product is 324.0 mGy*cm FINDINGS: There are orthopedic sam traversing the lunate and capitate, the hamate, triquetrum. There is lucency surrounding the tip of the staple that is located in the capitate. The more proximal aspect of the same staple appears to breach the lunate and abut the articular surface of the distal radius. There is also dorsal tilt of the lunate which may be contributing to the appearance of the screw. There are degenerative changes in the pisiform triquetral joint. Subchondral cysts are noted in the distal radius. There is 1st carpometacarpal joint space narrowing and osteophytes. No evidence for acute fracture. No evidence of cortical destruction or periosteal reaction. The scaphoid is not visualized. Soft tissues appear unremarkable. IMPRESSION: 1. Postsurgical changes in the proximal and distal carpal row of the right wrist. Findings suspicious for loosening of the staple across the capitate and lunate. Abnormal dorsal positioning of the lunate. Scaphoid not visualized. 2. Posttraumatic osteoarthritis. 3. No acute fracture or dislocation. No CT evidence of osteomyelitis. All CT scans at this medical facility are performed using dose modulation techniques as appropriate to a performed exam including the following: Automated exposure control was utilized; adjustment of the MA and/or KV according to patient size; and use of iterative reconstruction technique.
== END 2025-02-15 17:00 | disposition home or self-care (01) ==
LOC: CT 09:09
DX: M19.131 Post-traumatic osteoarthritis, right wrist (principal); M25.841 Other specified joint disorders, right hand; M25.741 Osteophyte, right hand; M25.531 Pain in right wrist
CPT/HCPCS: 73200